=== PATIENT | male | born 1955 | race Caucasian/White ===

== ENCOUNTER 2025-02-06 10:37 | Inpatient (IN) ==
--- NOTE | 2025-02-06 10:39 | Emergency Department Note ---
Impression & Plan Syncope, Pacemaker malfunction, Symptomatic bradycardia, CHI (closed head injury), Acute neck pain ED Provider Note NAME: ANABELLA YBARRA AGE: 70 SEX: M : 1955 ARRIVES VIA: Ambulance INFORMANT: Patient, ED PROVIDER(S): Elvis Moran MD CHIEF COMPLAINT: Syncope MEDICAL DECISION MAKING: Patient presents due to concern for syncope. The patient was bradycardic when he arrived. Patient was ordered IV fluids and atropine. Pacemaker interrogation ordered. No obvious pacemaker spikes noted on the monitor. Patient's blood pressure holding did have improvement in heart rate into the 60s after atropine 0.5. Patient did have CT head and cervical spine ordered patient placed in a collar as a precaution given that he did have posterior neck pain status post fall. Pads were placed. Blood work shows a white count of 4.6 with a hemoglobin of 13.2. Platelet count of 114. Patient's kidney function is unremarkable with normal electrolytes. Magnesium 1.6. Patient was ordered a gram for replacement. Urinalysis shows ketones but the patient was ordered IV fluids. Meant in his overall color. The patient's blood pressure also did improve and the pacemaker did seem to fire more as initially the patient only seem to have occasional sinus beats with PVCs on monitor. CT head and cervical spine were negative. The patient's cervical spine was cleared and collar was removed. Chest x-ray is unremarkable. I did receive the pacemaker interrogation report spoke with Heath gamble who states that its essentially not firing and only sensing and that it likely is at end-of-life. I did speak with on-call trust administrator Dr. Joshi stated that they would try and replace this today. I did speak the on-call hospitalist Dr. Donato and the patient was admitted to the medicine service. Critical Care: I have personally spent 45 minutes of critical care time in direct management of this patient. This includes bedside care, interpretation of diagnostic studies, and testing, discussion with consultants, patient, and family members, and other require inpatient management activities. This 45 minutes is in excess of all separately billable procedures. Discussion w/ other healthcare providers: None Prior /Outside records reviewed: I reviewed part of urology visit from Dr. Marcelino from December 2019 for history of BPH urinary urgency and erectile dysfunction. Patient was placed on mirabegron Differential diagnosis: Vasovagal event, dehydration, infection, hypoglycemia, electrolyte abnormalities, arrhythmia, pulmonary embolism, seizure among others were considered. Diagnostics, as interpreted by me: ECG: Occasional sinus beat with PVCs, ventricular rate of 69, wide QRS. Occasional pacemaker function noted. No obvious STEMI. Cardiac monitoring: An order was placed for continuous cardiac monitoring. The monitor shows a rate of 44 with PVCs rhythm. Patient was placed on pulse oximetry Medical decision rules: None Imaging studies: I informally interpreted the patient's Chest x-ray does not show obvious pneumonia or pneumothorax with formal report to follow. HPI: Patient presents due to concern for syncope. Reportedly was at [email or web address] when he passed out fell striking his head. He is not taking blood thinner medications. Prior history of pacemaker that he believes was placed about 11 years ago at [place]. He denies any chest pains or shortness of breath but does feel "shitty." Patient did not eat or drink this morning. He is unsure as to his trust administrator is. He denies any chest pain shortness of breath lower abdominal pain. He does complain of posterior head and neck pain. No numbness tingling or focal weakness but is generalized weakness. PAST MEDICAL HISTORY: See Below PAST SURGICAL HISTORY: See Below SOCIAL HISTORY: See Below HOME MEDICATIONS: See Below ALLERGIES: See Below VITALS: See Below PHYSICAL EXAMINATION: GENERAL: NAD, non-toxic. Head: Pain to the posterior occiput without obvious deformity. EYE EXAM: Normal conjunctiva. PERRL, no anisocoria and EOM's grossly intact w/o pain. OROPHARYNX: Moist mucus membranes, grossly normal dentition. NECK: Trachea midline, no stridor. Pain to the posterior midline upper C- spine. LUNGS: Clear to auscultation. Normal chest wall mechanics. HEART: NSR, no MRG. ABDOMEN: Abdomen soft, non-tender, no masses, no rebound or guarding. BACK: No CVA TTP. SKIN: No rashes and no bruising. UPPER EXTREMITIES: Upper extremities are grossly normal. LOWER EXTREMITIES: Grossly normal, no edema. NEURO EXAM: Awake and alert, follows commands, no obvious facial asymmetry, normal speech, moves all 4 extremities. Past Med/Surg History Problem List (Updated 02/06/25 @ 16:53 by Elvis Moarn MD) Acute neck pain (Acute) CHI (closed head injury) (Acute) Symptomatic bradycardia (Acute) Pacemaker malfunction (Acute) Syncope (Acute) Orthostasis Syncope Type 2 diabetes mellitus Urinary urgency Hypercholesterolemia Elevated PSA Erectile dysfunction Cardiac pacemaker HTN (hypertension) GERD (gastroesophageal reflux disease) Diabetes mellitus Peripheral neuropathy Depression with anxiety Chronic intractable pain Acute diarrhea Increased frequency of urination BPH (benign prostatic hyperplasia) Near syncope Medical History Hypothyroidism, unspecified Unspecified systolic heart failure Weight loss Dyspnea Back pain Neck pain Surgical History History of permanent cardiac pacemaker placement Family History Brother Diabetes Grandfather (Paternal) Lung cancer Father Lung cancer Mother Lung cancer Social History Smoking Status: Never smoker Hx Alcohol Use: No Hx Substance Use: No Preferred Language: Kazakh Beliefs That Will Affect Care: None marital status: Single Current Living Situation: Alone current occupational status: retired 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 Feels Safe at Home: Yes Allergies Allergies Allergy/AdvReac Type Severity Reaction Status Date / Time Penicillins Allergy Unknown Unknown Verified 02/06/25 15:31 Home Meds Home Medications Medication Instructions Recorded Confirmed blood sugar diagnostic 12/25/22 12/29/23 levothyroxine 112 mcg capsule 112 mcg PO DAILY 12/25/22 02/06/25 mirtazapine 15 mg tablet 15 mg PO HS 12/25/22 02/06/25 tamsulosin 0.4 mg capsule 0.8 mg PO DAILY 12/25/22 02/06/25 metformin 500 mg tablet 500 mg PO BID 12/29/23 02/06/25 propranolol 10 mg tablet 10 mg PO BID 12/29/23 02/06/25 insulin glargine 100 unit/mL 21 unit subcut UD 06/07/24 02/06/25 subcutaneous solution (Lantus U-100 Insulin) insulin lispro 100 unit/mL 18 unit subcut UD 06/07/24 02/06/25 subcutaneous pen (Humalog KwikPen (U-100) Insulin) amlodipine 10 mg tablet 10 mg PO DAILY 02/06/25 02/06/25 rosuvastatin 20 mg tablet 20 mg PO DAILY 02/06/25 02/06/25 Results & Data (ED) Vital Signs Vital Signs - 24 hr 02/06/25 10:31 02/06/25 10:31 02/06/25 10:51 Temperature 36.6 C 36.6 C Temperature Source Oral Oral Pulse Rate 50 L 45 L Pulse Rate [Apical] 50 L Respiratory Rate 19 19 Blood Pressure 109/78 Blood Pressure [Right Arm] 109/78 Blood Pressure Mean 88 Blood Pressure Mean [Right Arm] 88 Blood Pressure Position Semi-fowlers Blood Pressure Position [Right Arm] Semi-fowlers Pulse Oximetry 97 97 Oxygen Delivery Method Room Air Room Air Sepsis Recent Fever Within 48 Hours No Sepsis New/Unexplained Change in Mental Status No Sepsis Action Taken by Nursing No Action Required 02/06/25 11:21 02/06/25 11:27 02/06/25 12:21 Temperature Temperature Source Pulse Rate Pulse Rate [Apical] 69 65 Respiratory Rate 12 12 Blood Pressure Blood Pressure [Right Arm] 95/72 L 127/87 Blood Pressure Mean Blood Pressure Mean [Right Arm] 79 100 Blood Pressure Position Blood Pressure Position [Right Arm] Semi-fowlers Semi-fowlers Pulse Oximetry 97 97 Oxygen Delivery Method Room Air Room Air Room Air Sepsis Recent Fever Within 48 Hours Sepsis New/Unexplained Change in Mental Status Sepsis Action Taken by Longterm Medications Current Medication List: was personally reviewed by me Laboratory Data Attestation: I reviewed the patient's lab results. 02/06/25 10:43 02/06/25 10:43 Lab Results 02/06/25 02/06/25 Range/Units 10:43 10:48 WBC 4.60 L (4.8-10.8) K/ul RBC 4.85 (4.70-6.10) M/uL Hgb 13.2 L (14.0-18.0) g/dl POC Hgb 12.9 L (14.0-18.0) g/dl Hct 39.0 L (42.0-52.0) % POC Hct 38 L (42-52) % MCV 80.4 (80.0-100.0) fL MCH 27.2 (25.0-34.0) pg MCHC 33.8 (32.0-36.0) g/dL RDW Std Deviation 39.6 (36.4-46.3) fL RDW Coeff of Patricia 13.5 (11.5-14.5) % Plt Count 114 L (130-400) K/uL MPV 11.4 (9.4-12.4) fL Immature Gran % (Auto) 0.4 % Neut % (Auto) 67.2 % Lymph % (Auto) 25.0 % [place] % (Auto) 5.2 % Eos % (Auto) 2.0 % Baso % (Auto) 0.2 % Neut # (Auto) 3.09 (1.40-6.50) K/uL Lymph # (Auto) 1.15 L (1.20-3.40) K/uL [place] # (Auto) 0.24 (0.11-0.59) K/uL Eos # (Auto) 0.09 (0.00-0.50) K/uL Baso # (Auto) 0.01 (0.00-0.20) K/uL Immature Gran # (Auto) 0.02 (0.01-0.20) K/uL PT 11.4 (9.0-12.0) Seconds INR 1.1 (0.9-1.1) APTT 24 (21-31) Seconds PTT Ratio 0.9 POC Sodium 142 (135-144) mmol/L Sodium 141 (136-145) mmol/L POC Potassium 3.9 (3.3-5.0) mmol/L Potassium 3.9 (3.5-5.1) mmol/L POC Chloride 102 (101-112) mmol/L Chloride 106 (98-107) mmol/L Carbon Dioxide 28 (21-32) mmol/L POC Total CO2 26 (24-31) mmol/L Anion Gap 7 (3-11) POC Anion Gap 19.0 (16-25) mmol/L POC BUN 12 (7-18) mg/dl BUN 13 (6-23) mg/dl Creatinine 1.00 (0.6-1.4) mg/dl POC Creatinine 1.0 (0.6-1.3) mg/dl Est Cr Clr Drug Dosing 75.5 ml/min eGFR 79.97 BUN/Creatinine Ratio 13.0 (10-20) Glucose 145 H (70-99(Fasting)) mg/dl POC Glucose (other) 147 H (70-99) mg/dl Calcium 8.5 L (8.6-10.3) mg/dl POC Ioniz Calcium Demetrice 1.11 L (1.12-1.32) mmol/l Magnesium 1.6 L (1.7-2.4) mg/dl Total Bilirubin 1.0 (0.2-1.0) mg/dl AST 14 (13-39) U/L ALT 12 (7-52) U/L Alkaline Phosphatase 65 (34-104) U/L Troponin I High Sens 4.3 (0-20) pg/ml Total Protein 5.9 L (6.0-8.3) gm/dl Albumin 3.5 (3.4-5.0) gm/dl Globulin 2.4 L (2.5-4.0) gm/dl Albumin/Globulin Ratio 1.5 (0.9-2) TSH 2.485 (0.300-4.500) uIu/ml Administered Medications Discontinued Medications Atropine Sulfate (Atropine So4 1 Mg/Ml 1ml Vial) Confirm Administered Dose 1 mg .ROUTE .STK-MED ONE Stop: 02/06/25 10:50 Last Admin: 02/06/25 11:02 Dose: Not Given Documented By: VIRGILIO Atropine Sulfate (Atropine Sulfate 0.1 Mg/Ml 10ml Syr) 0.5 mg IV NOW STA Stop: 02/06/25 10:51 Last Admin: 02/06/25 11:03 Dose: 0.5 mg Documented By: VIRGILIO Cefazolin Sodium (Cefazolin 330 Mg/Ml 1 Gm Vial) Confirm Administered Dose 1,980 mg .ROUTE .STK-MED ONE Stop: 02/06/25 15:26 Last Admin: 02/06/25 16:34 Dose: Not Given Documented By: KEZIA Clindamycin Phosphate (Clindamycin 900 Mg/D5w 50 Ml Bag) Confirm Administered Dose 900 mg IV .STK-MED ONE Stop: 02/06/25 16:12 Last Admin: 02/06/25 16:35 Dose: 900 mg Documented By: EDWIGE Fentanyl Citrate (Fentanyl Citrate Pf 100 Mcg/2 Ml Vial) Confirm Administered Dose 100 mcg .ROUTE .STK-MED ONE Stop: 02/06/25 15:27 Last Increment: 02/06/25 16:41 Dose: 50 mcg Documented By: KEZIA Sodium Chloride (Nss) 1,000 mls @ 999 mls/hr IV .Q1H1M SHANIQUE Stop: 02/06/25 12:00 Last Infusion: 02/06/25 12:23 Dose: Infused Documented By: Admin: 02/06/25 11:03 Dose: 999 mls/hr Documented By: VIRGILIO Acetaminophen (Ofirmev) 1,000 mg in 100 mls @ 400 mls/hr IV NOW STA Stop: 02/06/25 11:15 Last Infusion: 02/06/25 12:23 Dose: Infused Documented By: Admin: 02/06/25 11:54 Dose: 400 mls/hr Documented By: CEF Magnesium Sulfate/Dextrose (Magnesium Sulfate / D5w) 1 gm in 100 mls @ 100 mls/hr IV NOW STA Stop: 02/06/25 12:49 Last Infusion: 02/06/25 14:30 Dose: Infused Documented By: Admin: 02/06/25 12:22 Dose: 100 mls/hr Documented By: CEF Sodium Chloride (Nss) 500 mls @ 999 mls/hr IV .Q31M ONE Stop: 02/06/25 12:20 Last Infusion: 02/06/25 14:30 Dose: Infused Documented By: Admin: 02/06/25 12:23 Dose: 999 mls/hr Documented By: CEF Lidocaine HCl (Lidocaine 1% Local 20 Ml Vial) Confirm Administered Dose 40 ml .ROUTE .STK-MED ONE Stop: 02/06/25 13:06 Last Admin: 02/06/25 16:34 Dose: 40 ml Documented By: KATHRINE Midazolam HCl (Midazolam Hcl 5 Mg/Ml 1 Ml Vial) Confirm Administered Dose 5 mg .ROUTE .STK-MED ONE Stop: 02/06/25 15:27 Last Increment: 02/06/25 16:42 Dose: 3 mg Documented By: KEZIA Sterile Water (Water, Sterile For Inj 10 Ml Vial) Confirm Administered Dose 10 ml .ROUTE .STK-MED ONE Stop: 02/06/25 13:06 Last Admin: 02/06/25 16:34 Dose: 10 ml Documented By: KATHRINE Vancomycin HCl (Vancomycin Hcl 1000mg/20ml Vial) Confirm Administered Dose 50 mg .ROUTE .STK-MED ONE Stop: 02/06/25 13:06 Last Admin: 02/06/25 16:34 Dose: 50 mg Documented By: KATHRINE Imaging Data Radiologist's Impression: Cervical Spine CT 02/06/25 11:01 CT cervical spine wo con CT DOSE: 1108.43 mGy.cm CLINICAL HISTORY: 70 years-old Male with fall. Acute neck injury status post fall COMPARISON: Head CT 02/06/2025 TECHNIQUE: Multiple axial CT images of the cervical spine were obtained without contrast. A dose lowering technique was utilized adhering to the principles of ALARA. FINDINGS: Straightening of the normal cervical lordosis. Degenerative partial bony fusion of the C5-C6 and C6-C7 levels. Mild to moderate uncovertebral hypertrophy and facet arthrosis. Multilevel neural foraminal stenosis, suboptimally dilated by CT technique. The cervical soft tissues appear unremarkable. Partially imaged left subclavian pacer leads. Multinodular thyroid goiter. The visualized lung apices appear clear. IMPRESSION: No acute cervical spine fracture or subluxation. ACT 112: Negative or not required by law. The above report was generated using voice recognition software. It may contain grammatical, syntax or spelling errors. Electronically signed by: Pedro Bryson M.D. 02/06/2025 11:[address] 02/06/25 11:01 CT head/brain wo con CLINICAL HISTORY: fall, CHI. TECHNIQUE: Multiple axial CT images of the head were obtained without contrast. A dose lowering technique was utilized adhering to the principles of ALARA. CT DOSE: 1108 COMPARISON: None FINDINGS: There is a small area of encephalomalacia at the left frontal lobe. There are mild chronic small vessel ischemic changes. No intracranial hemorrhage seen. No mass effect, midline shift, or hydrocephalus. No skull fracture seen. Visualized paranasal sinuses and mastoid air cells are clear. IMPRESSION: No acute findings. ACT 112: Negative or not required by law. The above report was generated using voice recognition software. It may contain grammatical, syntax or spelling errors. Electronically signed by: Satya Galvez M.D. 02/06/2025 11:33 AM Chest X-Ray 02/06/25 11:23 XR chest 1V portable CLINICAL HISTORY: syncope COMPARISON STUDY: None FINDINGS: Left-sided cardiac pacemaker is present. Heart size and pulmonary vasculature are normal. No effusion, consolidation, or pneumothorax. IMPRESSION: No acute findings. ACT 112: Negative or not required by law. Electronically signed by: Satya Galvez M.D. 02/06/2025 11:51 AM Discharge Plan Visit Data Chief Complaint: Syncope ED Provider: Elvis Moran Discharge Problem: Syncope, Pacemaker malfunction, Symptomatic bradycardia, CHI (closed head injury), Acute neck pain Patient Disposition: Admitted As Inpatient Condition: Good Discharge Instructions Interventions: ED Discharge Assessment Last Done: 02/06/25 14:17 Discharge Problem: Syncope Qualifiers: Syncope type: unspecified Qualified Code(s): R55 - Syncope and collapse Pacemaker malfunction Qualifiers: Encounter type: initial encounter Qualified Code(s): T82.111A - Breakdown (mechanical) of cardiac pulse generator (battery), initial encounter CHI (closed head injury) Qualifiers: Encounter type: initial encounter Qualified Code(s): S09.90XA - Unspecified injury of head, initial encounter
[2025-02-06 11:00] LABS: iSTAT Hemoglobin 12.9 g/dl (14.0-18.0); iSTAT Ionized Calcium 1.11 mmol/l (1.12-1.32); iSTAT Potassium 3.9 mmol/L (3.3-5.0)
[2025-02-06] MEDS: ATROPINE SO4 1 MG/ML 1ML VIAL ONE (11:02)
[2025-02-06] MEDS: ATROPINE SULFATE 0.1 MG/ML 10ML SYR IV STA (11:03)
[2025-02-06] MEDS: SODIUM CHLORIDE 0.9% 1,000 ML IV SCH (11:03)
[2025-02-06 11:17] LABS: Basophils # (auto) 0.01 K/uL (0.00-0.20); Basophils % (auto) 0.2 %; Eosinophils # (auto) 0.09 K/uL (0.00-0.50); Hemoglobin 13.2 g/dl (14.0-18.0); Immature Granulocytes # (auto) 0.02 K/uL (0.01-0.20); Immature Granulocytes % (auto) 0.4 %; Lymphocytes # (auto) 1.15 K/uL (1.20-3.40); Mean Corpuscular Hemoglobin 27.2 pg (25.0-34.0); Mean Corpuscular Hgb Conc 33.8 g/dL (32.0-36.0); Mean Corpuscular Volume 80.4 fL (80.0-100.0); Mean Platelet Volume 11.4 fL (9.4-12.4); Monocytes # (auto) 0.24 K/uL (0.11-0.59); Monocytes % (auto) 5.2 %; Neutrophils # (auto) 3.09 K/uL (1.40-6.50); Neutrophils % (auto) 67.2 %; Platelet Count 114 K/uL (130-400); RDW Coefficient of Variation 13.5 % (11.5-14.5); RDW Standard Deviation 39.6 fL (36.4-46.3); Red Blood Count 4.85 M/uL (4.70-6.10)
--- NOTE | 2025-02-06 11:34 | CT Scan Report ---
CT head/brain wo con CLINICAL HISTORY: fall, CHI. TECHNIQUE: Multiple axial CT images of the head were obtained without contrast. A dose lowering tech nique was utilized adhering to the principles of ALARA. CT DOSE: 1108 COMPARISON: None FINDINGS: There is a small area of encephalomalacia at the left frontal lobe. There are mild chronic small vessel ischemic changes. No intracranial hemorrhage seen. No mass effect, midline shift, or hyd rocephalus. No skull fracture seen. Visualized paranasal sinuses and mastoid air cells are clear. IMPRESSION: No acute findings. ACT 112: Negative or not required by law. The above report was generated using voice recognition software. It may contain grammatical, syntax o r spelling errors. Electronically signed by: Satya Galvez M.D. 02/06/2025 11:33 AM
[2025-02-06 11:44] LABS: Albumin Globulin Ratio 1.5 (0.9-2); Albumin Level 3.5 gm/dl (3.4-5.0); Calcium 8.5 mg/dl (8.6-10.3); Creatinine Clr Calc Pharmacy 75.5 ml/min; Globulin 2.4 gm/dl (2.5-4.0); Magnesium 1.6 mg/dl (1.7-2.4); Potassium 3.9 mmol/L (3.5-5.1); Total Protein 5.9 gm/dl (6.0-8.3)
--- NOTE | 2025-02-06 11:46 | CT Scan Report ---
CT cervical spine wo con CT DOSE: 1108.43 mGy.cm CLINICAL HISTORY: 70 years-old Male with fall. Acute neck injury status post fall COMPARISON: Head CT 02/06/2025 TECHNIQUE: Multiple axial CT images of the cervical spine were obtained without contrast. A dose low ering technique was utilized adhering to the principles of ALARA. FINDINGS: Straightening of the normal cervical lordosis. Degenerative partial bony fusion of the C5-C 6 and C6-C7 levels. Mild to moderate uncovertebral hypertrophy and facet arthrosis. Multilevel neural foraminal stenosis, suboptimally dilated by CT technique. The cervical soft tissues appear unremarkable. Partially imaged left subclavian pacer leads. Multinod ular thyroid goiter. The visualized lung apices appear clear. IMPRESSION: No acute cervical spine fracture or subluxation. ACT 112: Negative or not required by law. The above report was generated using voice recognition software. It may contain grammatical, syntax o r spelling errors. Electronically signed by: Pedro Bryson M.D. 02/06/2025 11:45 AM
[2025-02-06 11:49] LABS: Troponin I High Sensitivity 4.3 pg/ml (0-20)
[2025-02-06 11:51] LABS: INR 1.1 (0.9-1.1); Partial Thromboplastin Ratio 0.9; Partial Thromboplastin Time 24 Seconds (21-31); Prothrombin Time 11.4 Seconds (9.0-12.0)
--- NOTE | 2025-02-06 11:52 | XRay Report ---
XR chest 1V portable CLINICAL HISTORY: syncope COMPARISON STUDY: None FINDINGS: Left-sided cardiac pacemaker is present. Heart size and pulmonary vasculature are normal. N o effusion, consolidation, or pneumothorax. IMPRESSION: No acute findings. ACT 112: Negative or not required by law. Electronically signed by: Satya Galvez M.D. 02/06/2025 11:51 AM
[2025-02-06] MEDS: ACETAMINOPHEN 1,000 MG/100 ML VIAL IV STA (11:54)
[2025-02-06 11:59] LABS: Thyroid Stimulating Hormone 2.485 uIu/ml (0.300-4.500)
[2025-02-06] MEDS: MAGNESIUM SULFATE / D5W 1 GM/100 ML BAG IV STA (12:22)
[2025-02-06] MEDS: SODIUM CHLORIDE 0.9% 500 ML IV ONE (12:23)
--- NOTE | 2025-02-06 13:07 | History & Physical Report ---
Date of Service February 06, 2025 Assessment & Plan (1) Syncope: (2) Type 2 diabetes mellitus: (3) HTN (hypertension): Plan #Syncopegiven that he presented with bradycardia and no pacer activity on monitor, and has since responded to atropine and IV fluids, it seems pretty clear that he was suffering from symptomatic bradycardia most likely due to pacer malfunction. Cardiology has been consulted. Pacer pads are in place if needed. Hold propranolol for now. #Leukopenia/thrombocytopeniafollow. No signs or symptoms of tickborne illness. While it is a bit of a diagnostic crossover, because of leukopenia and thrombocytopenia (common with anaplasmosis) and bradycardia (not uncommon with Lymealthough I would think a functioning pacemaker would override this anyway) but mostly because tickborne illness is so common in this region this time of yearfollow his white count and platelets, and check a Lyme titer for completeness. Serial exams. #Type 2 diabetesuncertain control, he takes insulin but does not even know what his sugars run. Check an A1c. Follow fingersticks, Lantus 20 units at bedtime, log with a correction factor of 30 and a carb ratio of 1:15 for now. Hold metformin until his volume status/procedural status is more stable. #DVT prophylaxishold off on pharmacologic until post any procedureshopefully ambulation in a short hospital stay, but if his stay is prolonged at all may need to initiate pharmacologic tomorrow. #Hyperlipidemiacontinue rosuvastatin #BPH continue tamsulosin and unless he has any persistent orthostasis #dispositionadmit to telemetry, hopefully will be a fairly short stay, but if he is at all week after his pacer is working right, then may need to consider PT/OTbut I anticipate him being able to go home. History of Present Illness Chief Complaint: Syncope Primary Care Provider: Adele Spangler PA-C patient is a very pleasant 70-year-old male who presents after syncope. He was at the store waiting in line, and then he got lightheaded and passed out. He believes he did hit his head, and he has a bit of a headache and a stiff neck. He has maybe mild shoulder pain and stiffness but nothing significant and no abdominal or hip or leg pain. He is now awake and alert. He was found to be bradycardic and appears to have pacer malfunction. As far as other possible causes, while he is on insulin, he cannot recall ever having a low blood sugar event. Generally feels okay at this time. Allergies Allergy/AdvReac Type Severity Reaction Status Date / Time Penicillins Allergy Verified 10/30/20 09:28 N Allergy Unknown Uncoded 10/30/20 09:28 PCN Allergy Unknown Uncoded 10/30/20 09:28 Home Medications Medication Instructions Recorded Confirmed Type blood sugar diagnostic 12/25/22 12/29/23 History levothyroxine 112 mcg capsule 112 mcg PO DAILY 12/25/22 02/06/25 History mirtazapine 15 mg tablet 15 mg PO HS 12/25/22 02/06/25 History tamsulosin 0.4 mg capsule 0.8 mg PO DAILY 12/25/22 02/06/25 History metformin 500 mg tablet 500 mg PO BID 12/29/23 02/06/25 History propranolol 10 mg tablet 10 mg PO BID 12/29/23 02/06/25 History insulin glargine 100 unit/mL 21 unit subcut UD 06/07/24 02/06/25 History subcutaneous solution (Lantus U-100 Insulin) insulin lispro 100 unit/mL 18 unit subcut UD 06/07/24 02/06/25 History subcutaneous pen (Humalog KwikPen (U-100) Insulin) amlodipine 10 mg tablet 10 mg PO DAILY 02/06/25 02/06/25 History rosuvastatin 20 mg tablet 20 mg PO DAILY 02/06/25 02/06/25 History Past Med/Surg History Problem List (Updated 02/06/25 @ 13:11 by Morales Rowell DO) Syncope Type 2 diabetes mellitus Urinary urgency Hypercholesterolemia Elevated PSA Erectile dysfunction Cardiac pacemaker HTN (hypertension) GERD (gastroesophageal reflux disease) Diabetes mellitus Peripheral neuropathy Depression with anxiety Chronic intractable pain Acute diarrhea Increased frequency of urination BPH (benign prostatic hyperplasia) Near syncope Medical History Hypothyroidism, unspecified Unspecified systolic heart failure Weight loss Dyspnea Back pain Neck pain Surgical History History of permanent cardiac pacemaker placement Family History Brother Diabetes Grandfather (Paternal) Lung cancer Father Lung cancer Mother Lung cancer Social History Smoking Status: Never smoker Hx Alcohol Use: No Preferred Language: Kenyan marital status: Single current occupational status: retired current occupation: Retired [employer] Feels Safe at Home: Yes Review of Systems Review of Systems: All systems reviewed & are unremarkable except as noted in HPI & below Physical Exam Physical Exam: General he is awake alert oriented x 3 fatigued but no distress. HEENT normocephalic atraumatic mucous membranes moist. No spinal tenderness on palpation, but his paraspinal muscles are sore. Cardio is regular without rubs murmurs or gallops. Lungs are clear to auscultation bilaterally no rales rhonchi or wheezes. Abdomen is soft nondistended nontender no masses organomegaly. Extremities without sinus clubbing or edema no calf tenderness. Musculoskeletal shows again no bony tenderness to neck palpation, no pain or crepitus on shoulders, no pain with range of motion bilateral lower extremities. Results & Data Results & Data Vital Signs (Past 12 Hours) Vital Signs Temp Pulse Pulse Resp BP BP Pulse Ox 02/06/25 12:21 65 12 127/87 97 02/06/25 11:27 02/06/25 11:21 69 12 95/72 L 97 02/06/25 10:51 45 L 02/06/25 10:31 97.9 F 50 L 19 109/78 97 02/06/25 10:31 97.9 F 50 L 19 109/78 97 O2 Del Method 02/06/25 12:21 Room Air 02/06/25 11:27 Room Air 02/06/25 11:21 Room Air 02/06/25 10:51 02/06/25 10:31 Room Air 02/06/25 10:31 Room Air Code Status & VTE Plan VTE Prophylaxis Plan VTE Prophylaxis will be ordered: Yes PG Care Time/CCT Total # of Minutes Spent Total Time Spent with Patient: Total time spent is greater than 50% in coordination of care (as documented) at patient's floor/unit and/or counseling patient: Coding Level of Care Code 71479 INT INP/OBS CARE 3/75MIN Diagnoses Syncope R55 Type 2 diabetes mellitus E11.9 HTN (hypertension) I10
[2025-02-06 14:38] LABS: Appearance Urine Clear (Clear); Bilirubin Urine Negative (Negative); Blood Urine Negative (Negative); Color Urine Yellow; Glucose Urine UA Negative (Negative); Ketones Urine Trace (Negative); Leukocyte Esterase Urine Negative (Negative); Nitrite Urine Negative (Negative); Protein Urine Negative (Negative); Specific Gravity Urine 1.015 (1.000-1.030); Urobilinogen Urine Negative (Negative)
--- NOTE | 2025-02-06 14:46 | Cardiology Consultation ---
Date of Consultation February 06, 2025 Assessment & Plan (1) Syncope: (2) HTN (hypertension): (3) Orthostasis: (4) Cardiac pacemaker: Plan 1. Syncope: I do not think his syncope was primarily caused by pacemaker failure, however the current mode of operation of the pacemaker could contribute. He seems to have presyncope and syncope which may be due to orthostasis, possibly autonomic insufficiency due to diabetes mellitus (which probably should be evaluated while he is here) and when pacing intermittently in VVI mode the loss of AV synchrony and possibly a drop in heart rate could trigger presyncope or syncope. 2. Hypertension: He has a history of hypertension and is on medications for it (amlodipine 10 mg daily and propranolol 10 mg twice daily (which is probably used for his tremor as well). Here his blood pressure has not been elevated, a vasodilator like amlodipine may not be well-tolerated if he has autonomic dysfunction. I am going to hold his amlodipine for the time being but continue the propranolol. 3. Orthostasis: I suspect he has orthostasis but I do not know if it has been formally identified. I think it would be reasonable to perform a tilt test once we have the pacemaker replacement done (with its current pacing mode that might be hemodynamically detrimental and I do not want to do the test before replacing the pacemaker). It might be useful to document orthostasis or vagal episodes, vagal episodes that his age would be a little bit unusual. Making the diagnosis may help guide therapy with medications. 4. Pacemaker: He has a dual-chamber pacemaker in place which is now operating in the single-chamber mode. The device is at replacement time due to battery depletion. I discussed options of going home and having it done electively (which is probably safe but he may not feel well in the meantime due to its operating mode) versus having it done here today, he would like to stay and have the device replaced here. I have therefore made those arrangements. I cannot test the leads electrically in its current state of battery depletion, we will do that during surgery but I do not have reason to think that the leads are not functional. If they do have poor performance characteristics we will need to replace it/them. I reviewed the indications, procedure, risks and alternatives with the patient, and answered all questions. He did not want me to call anybody else such as family about the procedure. Patient understands and agrees to the procedure. Consent obtained. I also reviewed the risks and use of sedation, patient understands and consent obtained. History of Present Illness Reason for Consultation: Presyncope, syncope History of Present Illness This is a 70-year-old male who is followed primarily near [place]. He has a history of diabetes mellitus with peripheral neuropathy. He has a pacemaker in place which is reportedly implanted for sick sinus syndrome around 2013. I do h ave office notes from March 22, 2024 from his motor home electrical foreman (Dr. Gina Iverson) who I believe works for [facility]. It sounds as though he has had a lot of difficulty with lightheadedness, presyncope and syncope for some time, perhaps more than a year based on records, and it is not clear what has been causing it. He may have Parkinson's disease and I believe was going to be referred to neurology but I do not know if that was done. He presented to the emergency room today having had an episode of loss of consciousness. He tells me he was standing in line at [facility] when he passed out. It sounds as though this is a similar event that he has had before, he is a little bit vague about his history of lightheadedness and presyncope but it sounds as though it is relatively frequent and I am not sure it has been diagnosed. He was aware that his pacemaker was approaching replacement time but is not aware of plans to replace it as yet. At the time of my evaluation he was feeling well, in bed he does not have symptoms of lightheadedness or dizziness. In the emergency room it was reported that his pacemaker was not pacing correctly and interrogation did show the device to be at replacement time, however on review of telemetry and rhythm strips it appears that is working properly for end-of-life behavior (VVI 65). I believe the monitor was not counting intrinsic beats correctly and the displayed numbers were probably incorrectly low. Allergies Allergy/AdvReac Type Severity Reaction Status Date / Time Penicillins Allergy Unknown Unknown Verified 02/06/25 15:31 Home Medications Medication Instructions Recorded Confirmed Type blood sugar diagnostic 12/25/22 12/29/23 History levothyroxine 112 mcg capsule 112 mcg PO DAILY 12/25/22 02/06/25 History mirtazapine 15 mg tablet 15 mg PO HS 12/25/22 02/06/25 History tamsulosin 0.4 mg capsule 0.8 mg PO DAILY 12/25/22 02/06/25 History metformin 500 mg tablet 500 mg PO BID 12/29/23 02/06/25 History propranolol 10 mg tablet 10 mg PO BID 12/29/23 02/06/25 History insulin glargine 100 unit/mL 21 unit subcut UD 06/07/24 02/06/25 History subcutaneous solution (Lantus U-100 Insulin) insulin lispro 100 unit/mL 18 unit subcut UD 06/07/24 02/06/25 History subcutaneous pen (Humalog KwikPen (U-100) Insulin) amlodipine 10 mg tablet 10 mg PO DAILY 02/06/25 02/06/25 History rosuvastatin 20 mg tablet 20 mg PO DAILY 02/06/25 02/06/25 History Patient History Medical History Hypothyroidism, unspecified Unspecified systolic heart failure Weight loss Dyspnea Back pain Neck pain Surgical History History of permanent cardiac pacemaker placement Family History Brother Diabetes Grandfather (Paternal) Lung cancer Father Lung cancer Mother Lung cancer Social History Smoking Status: Never smoker Hx Alcohol Use: No Hx Substance Use: No Preferred Language: Lithuanian Beliefs That Will Affect Care: None marital status: Single Current Living Situation: Alone current occupational status: retired 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 HEENT: Unremarkable Neck: No jugular venous distention, carotid pulses are normal and equal bilaterally without bruits. Pulmonary: Clear to auscultation bilaterally. Cardiac: Regular rhythm with no murmur, gallop or rub. Abdomen: Soft, nontender with normal bowel sounds. Extremities: No edema. Neurologic: No focal findings. Gait was not tested. Skin: The device site is well-healed without erythema, swelling or tenderness. No rash, ecchymoses or petechiae. Results & Data Vital Signs (Past 12 Hours) Vital Signs Temp Pulse Pulse Resp BP BP Pulse Ox 02/06/25 14:15 65 18 117/83 97 02/06/25 13:21 65 19 122/76 98 02/06/25 12:21 65 12 127/87 97 02/06/25 11:27 02/06/25 11:21 69 12 95/72 L 97 02/06/25 10:51 45 L 02/06/25 10:31 36.6 C 50 L 19 109/78 97 02/06/25 10:31 36.6 C 50 L 19 109/78 97 O2 Del Method 02/06/25 14:15 Room Air 02/06/25 13:21 Room Air 02/06/25 12:21 Room Air 02/06/25 11:27 Room Air 02/06/25 11:21 Room Air 02/06/25 10:51 02/06/25 10:31 Room Air 02/06/25 10:31 Room Air Laboratory Results Cardiac Enzymes 02/06/25 Range/Units 10:43 AST 14 (13-39) U/L Troponin I High Sens 4.3 (0-20) pg/ml Coagulation 02/06/25 Range/Units 10:43 PT 11.4 (9.0-12.0) Seconds APTT 24 (21-31) Seconds CBC 02/06/25 Range/Units 10:43 WBC 4.60 L (4.8-10.8) K/ul RBC 4.85 (4.70-6.10) M/uL Hgb 13.2 L (14.0-18.0) g/dl Hct 39.0 L (42.0-52.0) % Plt Count 114 L (130-400) K/uL Neut # (Auto) 3.09 (1.40-6.50) K/uL Lymph # (Auto) 1.15 L (1.20-3.40) K/uL [place] # (Auto) 0.24 (0.11-0.59) K/uL Eos # (Auto) 0.09 (0.00-0.50) K/uL Baso # (Auto) 0.01 (0.00-0.20) K/uL Comprehensive Metabolic Panel 02/06/25 Range/Units 10:43 Sodium 141 (136-145) mmol/L Potassium 3.9 (3.5-5.1) mmol/L Chloride 106 (98-107) mmol/L Carbon Dioxide 28 (21-32) mmol/L BUN 13 (6-23) mg/dl Creatinine 1.00 (0.6-1.4) mg/dl Glucose 145 H (70-99(Fasting)) mg/dl Calcium 8.5 L (8.6-10.3) mg/dl AST 14 (13-39) U/L ALT 12 (7-52) U/L Alkaline Phosphatase 65 (34-104) U/L Total Protein 5.9 L (6.0-8.3) gm/dl Albumin 3.5 (3.4-5.0) gm/dl Intake and Output 02/05/25 02/06/25 02/06/25 22:59 06:59 14:59 Intake Total 1700 / 1700 Balance 1700 / 1700 Intake: IV 1700 / 1700 Acetaminophen 1,000 mg In 100 100 / 100 ml @ 400 mls/hr IV NOW STA Rx#: [id number] Magnesium Sulfate / D5w 1 gm In 100 / 100 100 ml @ 100 mls/hr IV NOW STA Rx#:[id number] Sodium Chloride 0.9% 500 ml @ 1500 / 1500 999 mls/hr IV .Q31M ONE Rx#: [id number] Other: Weight 89.2 kg Weight Measurement Method Built in [facility] Patient Weight 02/07/25 06:59 Weight 89.2 kg Diagnostic Findings Telemetry: Underlying sinus rhythm with intact AV conduction, intermittent ventricular pacing in VVI mode. Pacemaker interrogation: Pacemaker battery at replacement time, pacemaker programming has switched to VVI 65 which is its end-of-life behavior. PG Care Time/CCT Total # of Minutes Spent Total Time Spent with Patient: Total time spent is greater than 50% in coordination of care (as documented) at patient's floor/unit and/or counseling patient: Coding Level of Care Code 93729 INT INP/OBS CARE 3/75MIN Diagnoses Syncope R55 HTN (hypertension) I10 Orthostasis I95.1 Cardiac pacemaker Z95.0 CPT Codes Dual Lead Pacemaker System - 52038 ([id number])
[2025-02-06] MEDS ORDERED: MELATONIN 3 MG TAB PO PRN (15:18)
[2025-02-06] MEDS ORDERED: ONDANSETRON INJ 2 MG/ML 2 ML VIAL IV PRN (15:18)
[2025-02-06] MEDS ORDERED: POLYETHYLENE (MIRALAX) 17 GM PACK PO PRN (15:18)
[2025-02-06] MEDS ORDERED: ALUMINUM/MAGNESIUM SUSP 30 ML UDC PO PRN (15:18)
[2025-02-06] MEDS ORDERED: MAGNESIUM HYDROXIDE SUSP 30 ML UDC PO PRN (15:18)
[2025-02-06] MEDS ORDERED: ACETAMINOPHEN 325 MG TAB PO PRN (15:18)
--- NOTE | 2025-02-06 15:51 | Pre Anesthesia Assessment ---
Date of Service February 06, 2025 Pre Sedation Assessment Vital Signs Temp Pulse Pulse Resp BP BP Pulse Ox 02/06/25 15:28 36.6 C 65 16 122/72 98 02/06/25 15:07 36.6 C 18 02/06/25 15:07 36.6 C 66 18 140/77 99 02/06/25 14:15 65 18 117/83 97 02/06/25 13:21 65 19 122/76 98 02/06/25 12:21 65 12 127/87 97 02/06/25 11:27 02/06/25 11:21 69 12 95/72 L 97 02/06/25 10:51 45 L 02/06/25 10:31 36.6 C 50 L 19 109/78 97 02/06/25 10:31 36.6 C 50 L 19 109/78 97 O2 Del Method 02/06/25 15:28 Room Air 02/06/25 15:07 Room Air 02/06/25 15:07 Room Air 02/06/25 14:15 Room Air 02/06/25 13:21 Room Air 02/06/25 12:21 Room Air 02/06/25 11:27 Room Air 02/06/25 11:21 Room Air 02/06/25 10:51 02/06/25 10:31 Room Air 02/06/25 10:31 Room Air Cardiovascular RRR, no murmur, no edema Respiratory normal respiratory effort, lungs clear to auscultation Pre-Sedation Airway Assessment Smoking Status: Never smoker Hx Sleep Apnea: No Short, Thick Neck: No Thyromental Distance: > or= 3.5 Finger Breadths Oral Cavity: + WNL Mallampati Class: III ASA: ASA3 NPO Status Date of Last Intake of Fluids: 02/05/25 Time of Last Intake of Fluids: 12:00 Date of Last Intake of Solid Food: 02/05/25 Time of Last Intake of Solid Foods: 12:00 Procedure Planning Contraindications for Sedation: none Current Medications Reviewed: Yes Notes The planned sedation has been discussed with the patient. Informed Consent was obtained. I have identified the patient, determined the appropriateness of sedation and have assessed the patient immediately prior to the procedure. All medicine(s) and interventions are by my order.
[2025-02-06] MEDS: ceFAZolin 330 MG/ML 1 GM VIAL ONE (16:34)
[2025-02-06] MEDS: WATER, STERILE FOR INJ 10 ML VIAL ONE (16:34)
[2025-02-06] MEDS: LIDOCAINE 1% LOCAL 20 ML VIAL ONE (16:34)
[2025-02-06] MEDS: VANCOMYCIN HCL 1000MG/20ML VIAL ONE (16:34)
[2025-02-06] MEDS: CLINDAMYCIN 900 MG/D5W 50 ML BAG IV ONE (16:35)
[2025-02-06] MEDS: fentaNYL citrate PF 100 MCG/2 ML VIAL ONE (16:41)
[2025-02-06] MEDS: MIDAZOLAM HCL 5 MG/ML 1 ML VIAL ONE (16:42)
--- NOTE | 2025-02-06 17:00 | Electrophysiology Report ---
Date of Service February 06, 2025 Electrophysiology Procedure Electrophysiology Procedure Report Preoperative diagnosis: Pacemaker at recommended replacement time Postoperative diagnosis: Same Procedure: Dual-chamber pacemaker replacement Surgeon: Yovanny Zavala MD Estimated blood loss: 10 cc Specimens: Explanted pacemaker return to data warehousing specialist Complications: None Disposition: Cardiology recovery unit Procedure details: After obtaining informed consent for the procedure, the patient was brought to the laboratory being NPO after midnight. After identification in the laboratory the patient was prepped and draped in the standard sterile manner for a left-sided device replacement. The left prepectoral region was anesthetized with 1% lidocaine local anesthetic and once adequate anesthesia was obtained a 5 cm incision was made through the old implant scar and carried down to the pacemaker generator. The generator was dissected free of tissue and explanted. A vancomycin-soaked sponge was placed in the pocket. The pacemaker was removed from the leads and connected to an external pacing system. Pacing and sensing characteristics were evaluated in both the atrial and ventricular leads as noted on the implant data sheet. A new pacemaker was attached to the leads and found to be functioning normally. The vancomycin soaked sponge was removed from the pocket, the pacemaker was placed in the pocket with the leads coiled beneath it. The incision was closed with a running double subcutaneous closure of 3-0 Vicryl absorbable suture followed by a running subcuticular skin closure of 4-0 Vicryl absorbable suture. Bacitracin ointment was placed on the incision and a dressing applied. [facility] [place] Electrophysiology codes Indication for Procedure (1) Pacemaker battery depletion: Pacing Procedure 1: Pacin Dual Pacemaker replacement PG Moderate Sedation Codes Moderate Sedation Codes Procedure 1: Sedation/Anesthesia: 57251 Mod Sedation by the same physician;Init15 Min Child Age 5 & Up Procedure 2: Sedation/Anesthesia: 74742 Mod Sedation by the same physician; Ea [id number] Minutes
[2025-02-06] MEDS ORDERED: ACETAMINOPHEN W/CODEINE #3 1 TAB PO PRN (17:01)
--- NOTE | 2025-02-06 17:01 | Post Anesthesia Assessment ---
Date of Service February 06, 2025 Post Sedation Assessment Vital Signs Temp Pulse Pulse Resp BP BP Pulse Ox 02/06/25 15:28 36.6 C 65 16 122/72 98 02/06/25 15:07 36.6 C 18 02/06/25 15:07 36.6 C 66 18 140/77 99 02/06/25 14:15 65 18 117/83 97 02/06/25 13:21 65 19 122/76 98 02/06/25 12:21 65 12 127/87 97 02/06/25 11:27 02/06/25 11:21 69 12 95/72 L 97 02/06/25 10:51 45 L 02/06/25 10:31 36.6 C 50 L 19 109/78 97 02/06/25 10:31 36.6 C 50 L 19 109/78 97 O2 Del Method 02/06/25 15:28 Room Air 02/06/25 15:07 Room Air 02/06/25 15:07 Room Air 02/06/25 14:15 Room Air 02/06/25 13:21 Room Air 02/06/25 12:21 Room Air 02/06/25 11:27 Room Air 02/06/25 11:21 Room Air 02/06/25 10:51 02/06/25 10:31 Room Air 02/06/25 10:31 Room Air Recovery Score Activity: Moves 4 extremities Respiration: Deep Breath/Cough Circulation: +/-20% PreAnes Value Consciousness: Fully Awake Oxygen Saturation: > 92% On Room Air Discharge Sedation Level of Care: Fast Track Phase II Post Sedation Plan On clinical assessment, the patient appears to have tolerated the sedation without complications. Patient is recovering as anticipated. Patient will continue to be monitored by nursing and may be discharged when sedation discharge criteria are met per below protocol. Upon Completions of procedure up to 15 minutes continue every 5 minute vital signs and the P.A.R. score; then discharge to a Phase I or Fast Track to Phase II per the following guidelines: * Discharge Patient to appropriate Phase II area if PAR is 8 or greater or return to pre- procedure baseline. The post - procedure orders will be as directed. * If PAR score is less than 8 or not return to pre-procedure baseline then pa tient will follow Phase I monitoring till PAR is reached for Phase II. The Phase I may be done in procedure room or may call to secure a Phase I area. * If naloxone or flumazenil are used for reversal, hold in Phase I for continued monitoring from when last reversal dose was given for a minimum of 60 minutes or longer pending the nurse and/or physician discretion of patient condition before discharge to Phase II. Please call the Sedation Physician to re-evaluate and complete post-note for discharge to Phase II area. Do NOT discharge from procedure sedation or Phase 1 until post- sedation evaluation note is complete by procedure /sedation MD Sedation Discharge Instructions to be given to the patient at discharge to home.
[2025-02-06] MEDS: DICLOFENAC SOD 1% GEL 100 GM TUBE EXT SCH (17:21)
[2025-02-06] MEDS: INSULIN ASPART PER UNIT CHARGE SC SCH (17:56)
[2025-02-06] MEDS: MIRTAZAPINE TAB 15 MG TAB PO SCH (20:04)
[2025-02-06] MEDS: PROPRANOLOL HCL 10 MG TAB PO SCH (20:05)
[2025-02-06 20:56] LABS: Estimated Average Glucose 194 mg/dl; Hemoglobin A1C 8.4 % (4.5-5.6)
[2025-02-06] MEDS: LANTUS PER UNIT CHARGE SQ SCH (21:15)
[2025-02-07 06:26] LABS: Calcium 8.2 mg/dl (8.6-10.3); Potassium 3.6 mmol/L (3.5-5.1)
[2025-02-07 06:32] LABS: Creatinine Clr Calc Pharmacy 95.5 ml/min
[2025-02-07] MEDS: LEVOTHYROXINE SODIUM 112 MCG TABLET PO SCH (06:33)
[2025-02-07 06:43] LABS: Hematocrit (blood only) 36.9 % (42.0-52.0); Hemoglobin 12.7 g/dl (14.0-18.0); Mean Corpuscular Hemoglobin 27.5 pg (25.0-34.0); Mean Corpuscular Hgb Conc 34.4 g/dL (32.0-36.0); Mean Platelet Volume 11.2 fL (9.4-12.4); Platelet Count 97 K/uL (130-400); RDW Coefficient of Variation 13.6 % (11.5-14.5); Red Blood Count 4.61 M/uL (4.70-6.10); White Blood Count 4.12 K/ul (4.8-10.8)
[2025-02-07 06:44] LABS: Basophils # (auto) 0.02 K/uL (0.00-0.20); Basophils % (auto) 0.5 %; Eosinophils # (auto) 0.13 K/uL (0.00-0.50); Eosinophils % (auto) 3.2 %; Immature Granulocytes # (auto) 0.01 K/uL (0.01-0.20); Immature Granulocytes % (auto) 0.2 %; Lymphocytes # (auto) 1.18 K/uL (1.20-3.40); Lymphocytes % (auto) 28.6 %; Monocytes # (auto) 0.28 K/uL (0.11-0.59); Monocytes % (auto) 6.8 %; Neutrophils % (auto) 60.7 %; Ovalocytes 1+; Platelet Estimate Decreased (Normal)
[2025-02-07] MEDS: ROSUVASTATIN CALCIUM 20 MG TAB PO SCH (08:46)
[2025-02-07] MEDS: TAMSULOSIN HCL 0.4 MG CAP PO SCH (08:46)
[2025-02-07] MEDS ORDERED: amLODIPine BESYLATE 5 MG TAB PO SCH (09:00)
[2025-02-07 09:07] VITALS: PULSE 60
--- NOTE | 2025-02-07 10:15 | Cardiology Progress Note ---
Date of Service February 07, 2025 Assessment & Plan (1) Pacemaker battery depletion: (2) Syncope: (3) Orthostasis: Plan 1. Postoperative day #1 pacemaker replacement: His pacemaker is functioning well, now in dual-chamber mode. He is doing well postoperatively. The site looks good and he does not have significant discomfort. 2. Syncope: I do not think his presenting syncope was primarily caused by pacemaker failure, however the mode of operation of the pacemaker could con tribute. 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 That may be improved now that his pacemaker has been replaced but will probably not be eliminated. 3. Orthostasis: He has well-documented and quite significant orthostasis based on his tilt test. His blood pressure dropped 30 mmHg immediately when placed upright, and then dropped further to a low of 103 mmHg systolic at 10 minutes resulting in lightheadedness and nausea and he requested to be placed supine. When placed supine his blood pressure immediately increased by 54 mmHg systolic. I am going to start midodrine, he does have some difficulty with edema therefore Florinef may not be a good idea although we may end up needing to use it. We are going to have to except some degree of supine hypertension. Admission and Anticipated Discharge Date Admission Date: February 06, 2025 Subjective He is feeling well following pacemaker replacement yesterday, a little bleeding immediately on returning to the room which may have been due to movement from the stretcher to the bed, that resolved and he does not have significant discomfort. Physical Exam Physical Exam: The pacemaker site is clean and dry, no swelling, no significant ecchymosis. Dressing changed. Cardiac rhythm is regular with no rub Lungs are clear No edema Results & Data Vital Signs (Past 12 Hours) Vital Signs Temp Pulse Pulse Resp BP Pulse Ox O2 Del Method 02/07/25 08:01 36.9 C 69 16 163/89 H 95 Room Air 02/07/25 05:47 60 02/07/25 03:46 36.9 C 60 18 149/81 H 95 Room Air 02/06/25 23:37 36.5 C 61 18 136/80 95 Room Air Laboratory Results Cardiac Enzymes 02/06/25 Range/Units 10:43 AST 14 (13-39) U/L Troponin I High Sens 4.3 (0-20) pg/ml Coagulation 02/06/25 Range/Units 10:43 PT 11.4 (9.0-12.0) Seconds APTT 24 (21-31) Seconds CBC 02/06/25 02/07/25 Range/Units 10:43 05:33 WBC 4.60 L 4.12 L (4.8-10.8) K/ul RBC 4.85 4.61 L (4.70-6.10) M/uL Hgb 13.2 L 12.7 L (14.0-18.0) g/dl Hct 39.0 L 36.9 L (42.0-52.0) % Plt Count 114 L 97 L (130-400) K/uL Neut # (Auto) 3.09 2.50 (1.40-6.50) K/uL Lymph # (Auto) 1.15 L 1.18 L (1.20-3.40) K/uL [place] # (Auto) 0.24 0.28 (0.11-0.59) K/uL Eos # (Auto) 0.09 0.13 (0.00-0.50) K/uL Baso # (Auto) 0.01 0.02 (0.00-0.20) K/uL Comprehensive Metabolic Panel 02/06/25 02/07/25 Range/Units 10:43 05:33 Sodium 141 139 (136-145) mmol/L Potassium 3.9 3.6 (3.5-5.1) mmol/L Chloride 106 105 (98-107) mmol/L Carbon Dioxide 28 29 (21-32) mmol/L BUN 13 15 (6-23) mg/dl Creatinine 1.00 0.79 (0.6-1.4) mg/dl Glucose 145 H 198 H (70-99(Fasting)) mg/dl Calcium 8.5 L 8.2 L (8.6-10.3) mg/dl AST 14 (13-39) U/L ALT 12 (7-52) U/L Alkaline Phosphatase 65 (34-104) U/L Total Protein 5.9 L (6.0-8.3) gm/dl Albumin 3.5 (3.4-5.0) gm/dl Intake and Output 02/06/25 02/07/25 02/07/25 22:59 06:59 14:59 Intake Total 50 / 1950 200 / 1950 Output Total 375 / 1675 1300 / 1675 Balance -325 / 275 -1100 / 275 Intake: Oral 50 / 250 200 / 250 Output: Urine 375 / 1675 1300 / 1675 Other: Weight 89.2 kg 88.1 kg Weight Measurement Method Standing Scale Built in [facility] Diagnostic Findings Postop ECG: Atrial paced rhythm with intact AV conduction and inferolateral T wave inversion, I suspect his T wave inversion is "T wave memory". Telemetry: Atrial pacing and sinus rhythm, normal pacer operation Tilt test: Positive for orthostatic hypotension with significant blood pressure drop and development of symptoms. PG Care Time/CCT Total # of Minutes Spent Total Time Spent with Patient: Total time spent is greater than 50% in coordination of care (as documented) at patient's floor/unit and/or counseling patient: Coding Level of Care Code 70894 Post Operative Follow-Up Diagnoses Pacemaker battery depletion Z45.010 Syncope R55 Syncope type: unspecified Orthostasis I95.1 (2) Syncope Syncope type: unspecified Qualified Code(s): R55 - Syncope and collapse
--- NOTE | 2025-02-07 10:45 | Tilt Table Test ---
PG Cardiac Tilt Table Test Date of Service Date of Service: February 07, 2025 The patient was brought to the laboratory having nothing by mouth after midnight. The patient was identified in the laboratory. After obtaining informed consent for the procedure, the patient was placed supine on the tilt table and remained supine for 15 minutes. The head of the tilt table was then raised to a 70 head up position where it remained for about 11 minutes at which time he requested the table be lowered due to symptoms of lightheadedness and nausea. The head of the bed was then placed supine and monitoring continued for an additional 15 minutes. During the procedure continuous pulse oximetry and electrocardiography was performed, noninvasive blood pressure monitoring was performed at five-minute intervals and with onset of symptoms. Findings: The blood pressure dropped significantly during the study. Upon immediate upright tilt the systolic blood pressure dropped by 30 mmHg and he did note lightheadedness (systolic blood pressure 115 millimeters of mercury at that time). With continued upright tilt the blood pressure dropped to 103/67 at 10 minutes associated with lightheadedness and nausea. At that point he requested the head of the bed be placed down and at 11 minutes after being placed supine his blood pressure increased to 157/83. His heart rate did increase somewhat during the test, he was paced at 60 bpm supine and this increased to a sinus rate of just over 70 bpm with upright tilt. The heart rate dropped to an atrial paced rate of 60 bpm when placed supine. Pulse oximetry was unchanged throughout the study. Details of the blood pressure, heart rate and pulse oximetry data are presented on the procedure data sheet. Conclusions: Abnormal tilt test with clear evidence of orthostasis associated with a significant drop in blood pressure and development of symptoms. Midodrine will be started. The pacemaker was not reprogrammed, rate response will not help at rest, we could increase the base pacing rate but his heart rate did increase to more than 70 bpm during the test so increasing the base rate to 70 or 75 bpm would probably not be very helpful. We could consider an increase to 80 or 85 during daytime with a reduction at night but I have not done this. PG Cardiac Tilt Table Codes Indication for Procedure (1) Orthostasis: Procedure Code Tilt Table Evaluation: 55045 Tilt Table Evaluation
[2025-02-07 12:31] VITALS: BP 159/91; RESP 18; TEMP 98.8; O2SAT 98
[2025-02-07] MEDS: MIDODRINE HCL 2.5 MG TAB PO SCH (12:36)
--- NOTE | 2025-02-07 14:07 | Discharge Summary ---
Date of Service February 07, 2025 Admission HPI Per Admitting Provider patient is a very pleasant 70-year-old male who presents after syncope. He was at the store waiting in line, and then he got lightheaded and passed out. He believes he did hit his head, and he has a bit of a headache and a stiff neck. He has maybe mild shoulder pain and stiffness but nothing significant and no abdominal or hip or leg pain. He is now awake and alert. He was found to be bradycardic and appears to have pacer malfunction. As far as other possible causes, while he is on insulin, he cannot recall ever having a low blood sugar event. Generally feels okay at this time. Admission Exam (Per Admitting) Constitutional The patient is awake, alert and oriented 3, well developed and well nourished, normocephalic and atraumatic, lying in bed and in no acute distress. HEENT--PERRL, EOMI, mucous membranes and oropharynx mildly dry Neck--supple. No JVD. No bruits. Thyroid normal, trachea midline, no adenopathy. Heart--normal S1 and S2. No murmurs, rubs or gallops. Lungs--clear bilaterally, no respiratory distress, no accessory muscle use. Abdomen--normal bowel sounds and soft. Extremities--no cyanosis or clubbing. No edema. Dermatologic--normal skin turgor, normal color, no abnormal lymph nodes, no rash. Neurologic--cranial nerves II through XII grossly intact. Rheumatologic--normal range of motion. Psychiatric--normal affect. Discharge Data Consultations 02/06/25 11:49 Consult Cardiology Routine ED Decision to Admit Stat Procedures Performed Operation Date: 02/07/25 09:30 <No data on this case meets the specified criteria> Hospital Course (1) Syncope: (2) Type 2 diabetes mellitus: (3) HTN (hypertension): Plan #Syncope Not due to pacer malfunction according to Mail Truck Driver "I do not think his presenting syncope was primarily caused by pacemaker failure, however the mode of operation of the pacemaker could contribute. 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 That may be improved now that his pacemaker has been replaced but will probably not be eliminated". His Tilt test was positive for orthostatic BP changes has been started on PO Midodrine willl follow up with cardioogy outpatient #Type 2 diabetesuncertain control, he takes insulin but does not even know what his sugars run. Check an A1c. Follow fingersticks, Lantus 20 units at bedtime, log with a correction factor of 30 and a carb ratio of 1:15 for now. Hold metformin until his volume status/procedural status is more stable. #DVT prophylaxishold off on pharmacologic until post any procedures hopefully ambulation in a short hospital stay, but if his stay is prolonged at all may need to initiate pharmacologic tomorrow. #Hyperlipidemiacontinue rosuvastatin #BPH continue tamsulosin and unless he has any persistent orthostasis #dispositiond/c home Coding Level of Care Code 05738 INP/OBS DISCH >30 MIN Diagnoses Syncope R55 Type 2 diabetes mellitus E11.9 HTN (hypertension) I10 Time Spent (min) 35
--- NOTE | 2025-02-07 16:57 | Electrocardiogram Report ---
Test Reason : Blood Pressure : */* mmHG Vent. Rate : 60 BPM Atrial Rate : 60 BPM P-R Int : 226 ms QRS Dur : 74 ms QT Int : 460 ms P-R-T Axes : 7 18 -48 degrees QTcB Int : 460 ms Atrial-paced rhythm with prolonged AV conduction Low voltage QRS T wave abnormality, consider inferior ischemia , may be due to prior ventricular pacing T wave abnormality, consider anterolateral ischemia , may be due to prior ventricular pacing Abnormal ECG When compared with ECG of 06-Feb-2025 10:41, (unconfirmed) Electronic atrial pacemaker has replaced Electronic ventricular pacemaker Confirmed by Yovanny Zavala ([id number]) on 02/07/2025 4:57:15 PM Referred By: REFERRED SELF Confirmed By: Yovanny Zavala
--- NOTE | 2025-02-08 14:58 | Electrocardiogram Report ---
Test Reason : Blood Pressure : */* mmHG Vent. Rate : 69 BPM Atrial Rate : 88 BPM P-R Int : * ms QRS Dur : 180 ms QT Int : 506 ms P-R-T Axes : 31 -76 91 degrees QTcB Int : 542 ms Sinus rhythm Bradycardia with intermittent ventricular pacing Abnormal ECG When compared with ECG of 07-Oct-1999 17:39, HR has decreased Electronic ventricular pacemaker has replaced Sinus rhythm Confirmed by Yovanny Zavala ([id number]) on 02/08/2025 2:57:44 PM Referred By: REFERRED SELF Confirmed By: Yovanny Zavala
== END 2025-02-07 13:48 | disposition home or self-care (01) | DRG 259 ==
LOC: ED 10:37 → SUATTDRO 12:50 → 2E 12:50